=== PATIENT | female | born 1975 | race Caucasian/White ===

== ENCOUNTER 2022-01-18 10:11 | Day surgery (SDC) | payer BC ==
[~2022-01-18 10:11] MED LIST: Lactated Ringers 1,000 ML IV SCH; Propofol 200 MG/20 ML SDV ONE; Sodium Chloride 0.9% 10 ML Syringe FLUSH PRN; Sodium Chloride 0.9% 2.5 ML Syringe FLUSH PRN; Sodium Chloride 0.9% 20 ML SDV IV PRN
[2022-01-18 12:51] VITALS: BP 124/74; PULSE 65
== END 2022-01-18 13:05 | disposition home or self-care (01) ==
LOC: MW.SDS 10:11
PROVIDERS: ATTEND Surgery
DX: K59.09 Other constipation (principal); G43.909 Migraine, unspecified, not intractable, without status migrainosus; F17.210 Nicotine dependence, cigarettes, uncomplicated; Z79.899 Other long term (current) drug therapy; Z88.2 Allergy status to sulfonamides
CPT/HCPCS: 45380; 81025; J2704; J7120; 00811

== ENCOUNTER 2022-12-24 16:14 | Emergency (ER) | payer BC ==
[2022-12-24] MEDS ORDERED: Lidocaine 1% 5 ML VIAL INJECT STA (18:18)
[2022-12-24] MEDS ORDERED: Diphtheria,Pertussis(Acell),Tetanus Vaccine 0.5 ML Syringe IM ONE (18:18)
[2022-12-24] MEDS ORDERED: Bacitracin Oint 1 GM U/D Packet TOP STA (19:30)
[2022-12-24 19:47] VITALS: BP 130/87; PULSE 87
== END 2022-12-24 19:47 | disposition home or self-care (01) ==
LOC: MW.ED 16:14
DX: S61.210A Laceration without foreign body of right index finger without damage to nail, initial encounter (principal); I10 Essential (primary) hypertension; Z23 Encounter for immunization; Z88.2 Allergy status to sulfonamides; Z79.899 Other long term (current) drug therapy; W23.0XXA Caught, crushed, jammed, or pinched between moving objects, initial encounter
CPT/HCPCS: 12002; 90471; 90715; 99282-25; 99283; J3490